=== PATIENT | female | born 1930 | race Caucasian/White ===

== ENCOUNTER 2016-12-02 13:11 | Emergency (ER) | payer MEDICARE, BC ==
[2016-12-02 13:53] VITALS: BP 132/79
--- NOTE | 2016-12-02 14:36 | UC ---
Throat Pain/Nasal Ramon HPI - HPI Summary HPI Summary: 86 YEAR OLD FEMALE PRESENTS WITH COMPLAINS OF LEFT LEG SWELLING, ERYTHEMA, AND PAIN. - History of Current Complaint Chief Complaint: UCRespiratory Stated Complaint: COUGH,SINUS PAIN Time Seen by Provider: 12/02/16 14:33 Onset/Duration: Lasting Days Severity: Moderate Pain Scale Used: 0-10 Numeric - 5 Cough: Nonproductive Associated Signs & Symptoms: Positive: Negative - Allergies/Home Medications Allergies/Adverse Reactions: Allergies Allergy/AdvReac Type Severity Reaction Status Date / Time Amoxicillin [From Augmentin] Allergy Severe Nausea And Verified 10/06/14 07:42 Vomiting Clavulanic Acid Allergy Severe Nausea And Verified 10/06/14 07:42 [From Augmentin] Vomiting Erythromycin Allergy Mild Nausea Verified 10/06/14 07:42 Home Medications: Home Medications Multiple Vitamins W/ Minerals [Multivitamin Women 50+] 1 tab PO 12/02/16 [ History] PMH/Surg Hx/FS Hx/Imm Hx Previously Healthy: Yes - Surgical History Surgical History: Yes Surgery Procedure, Year, and Place: hysterectomy. knee replacement. appy - Family History Known Family History: Positive: None - Social History Alcohol Use: None Substance Use Type: None Smoking Status (MU): Never Smoked Tobacco Review of Systems Constitutional: Negative Skin: Other - LEFT LEG CELLILITIS Eyes: Negative ENT: Negative Respiratory: Negative Cardiovascular: Negative Gastrointestinal: Negative Genitourinary: Negative Motor: Negative Neurovascular: Negative Musculoskeletal: Negative Neurological: Negative Psychological: Negative All Other Systems Reviewed And Are Negative: Yes Physical Exam Triage Information Reviewed: Yes Vital Signs: Initial Vital Signs Temp 37.1 C 12/02/16 13:40 Pulse 105 12/02/16 13:40 Resp 18 12/02/16 13:40 BP 132/79 12/02/16 13:40 Pulse Ox 99 12/02/16 13:40 Eye Exam: Normal ENT Exam: Normal Dental Exam: Normal Neck exam: Normal Neck: Positive: 1 Respiratory Exam: Normal Cardiovascular Exam: Normal Abdominal Exam: Normal Musculoskeletal Exam: Normal Neurological Exam: Normal Psychological Exam: Normal Skin: Positive: Other - LEFT LEG CELLULITIS Throat Pain/Nasal Course/Dx - Differential Dx/Diagnosis Provider Diagnoses: LEFT LEG CELLULITIS Discharge - Discharge Plan Condition: Stable Disposition: HOME Prescriptions: Azithromyxin BI (NF) [Z-Bi (Zithromax) 250 mg tabs #6] 2 tab PO .TODAY, THEN 1 DAILY #6 tab LoraTADine TAB(NF) [Claritin 10 MG TAB(NF)] 10 mg PO DAILY #30 tab guaiFENesin/CODIEN 100MG-10MG* [Robitussin AC 100Mg-10Mg*] 5 ml PO Q8H PRN #120 udc MDD 15 ml PRN Reason: Cough Patient Education Materials: Allergic Rhinitis (ED) Referrals: No Primary Care Phys,NOPCP [Primary Care Provider] -
== END 2016-12-02 14:43 | disposition home or self-care (01) ==
LOC: UCEAST 13:11
DX: L03.116 Cellulitis of left lower limb (principal); Z88.1 Allergy status to other antibiotic agents
CPT/HCPCS: 99212; G0463

== ENCOUNTER 2017-08-01 07:25 | Emergency (ER) | payer MEDICARE, BC ==
[2017-08-01 07:52] VITALS: BP 138/72
--- NOTE | 2017-08-01 08:39 | UC ---
Inga Vega Julia, scribed for Estefani Lake MD on 08/01/17 at 0827 . Respiratory Complaint HPI - HPI Summary HPI Summary: This patient is a 87 year old F presenting to [facility] [place] with a chief complaint of right sided sinus pain and pressure and chest congestion since 07/29/17. Patient reports rhinorrhea, post nasal drip, right ear pain, and mild sore throat. Pain is 1/10 pressure in severity. Patient denies CP, SOB, and dizziness. Sinus rinse , Claritin, AFrin, and Tylenol used to treat symptoms. Previous sinus infections relieved with Z-Mahad -last > 1 year. Pt reports hx of bronchitis when these symptoms are left untreated. PMHx of pulmonary embolism in R lung, three weeks ago, cause is unknown. Pt is currently taking Eliquis. Pt is being seen in [place] for follow up care. Allergies reviewed with patient. pt's medications reviewed - History of Current Complaint Chief Complaint: UCGeneralIllness Stated Complaint: SINUS ISSUE Hx Obtained From: Patient ?: No Onset/Duration: Lasting Days, Still Present Severity Initially: Mild Severity Currently: Mild Pain Intensity: 1 Pain Scale Used: 0-10 Numeric Character: Cough: Productive - yellow Aggravating Factors: Nothing Alleviating Factors: Nothing Associated Signs And Symptoms: Positive: Nasal Congestion, Sinus Discomfort. Negative: Pleuritic Chest Pain, Dizziness - Allergies/Home Medications Allergies/Adverse Reactions: Allergies Allergy/AdvReac Type Severity Reaction Status Date / Time amoxicillin [From Augmentin] Allergy Intermediate Nausea And Verified 08/01/17 07:42 Vomiting clavulanic acid Allergy Intermediate Nausea And Verified 08/01/17 07:42 [From Augmentin] Vomiting erythromycin base Allergy Mild Nausea Verified 08/01/17 07:42 Home Medications: Home Medications Acetaminophen [Tylenol] 2 tab PO BID PRN 08/01/17 [History Confirmed 08/01/17] Apixaban* [Eliquis*] 1 tab PO BID 08/01/17 [History Confirmed 08/01/17] LoraTADine TAB(NF) [Claritin 10 MG TAB(NF)] 10 mg PO DAILY PRN 08/01/17 [ History Confirmed 08/01/17] PMH/Surg Hx/FS Hx/Imm Hx Previously Healthy: No Respiratory History: Pulmonary Embolism - Surgical History Surgical History: Yes Surgery Procedure, Year, and Place: hysterectomy. knee replacement. appy - Family History Known Family History: Positive: Diabetes - Social History Occupation: Retired Lives: With Family - no smoke exposure at home Alcohol Use: None Substance Use Type: None Smoking Status (MU): Never Smoked Tobacco - Immunization History Most Recent Tetanus Shot: UNK Review of Systems Constitutional: Negative - dizziness ENT: Sore Throat, Ear Ache, Nasal Discharge, Sinus Congestion, Sinus Pain/ Tenderness Respiratory: Negative - SOB, Other - congestion Cardiovascular: Negative All Other Systems Reviewed And Are Negative: Yes Physical Exam Triage Information Reviewed: Yes Appearance: Well-Appearing, No Pain Distress, Well-Nourished Vital Signs: Initial Vital Signs Temp 99 F 08/01/17 07:44 Pulse 73 08/01/17 07:44 Resp 18 08/01/17 07:44 BP 138/72 08/01/17 07:44 Pulse Ox 99 08/01/17 07:44 Vital Signs Reviewed: Yes Eye Exam: Normal Eyes: Positive: Conjunctiva Clear ENT: Positive: Other - fluid right TM left TM wnl turbinates turbinates inflammed and boggy + PND uvula midline no exudate, no erythema + TTP sinus R> L maxillary Dental Exam: Normal Neck exam: Normal Neck: Positive: Supple, Nontender, No Lymphadenopathy Respiratory Exam: Normal Respiratory: Positive: Chest non-tender, Lungs clear, Normal breath sounds, No respiratory distress, No accessory muscle use Cardiovascular Exam: Normal Cardiovascular: Positive: RRR, No Murmur Abdominal Exam: Normal Abdomen Description: Positive: Nontender, No Organomegaly, Soft Bowel Sounds: Positive: Present Musculoskeletal Exam: Normal Musculoskeletal: Positive: Strength Intact Neurological Exam: Normal Neurological: Positive: Alert Psychological Exam: Normal Psychological: Positive: Normal Response To Family Skin Exam: Normal UC Diagnostic Evaluation - Laboratory O2 Sat by Pulse Oximetry: 99 Respiratory Course/Dx - Course Course Of Treatment: Pt presents with right sided facial pain and sinus pressure. Pt has taken claritin and Afrin with some improvement. pt with exam consistent with sunitis. Will start abx -pt tolerates zpack (emycin causes nausea). Afrin precaution. hydrate. secretion precaution. pcp f/u - Differential Dx/Diagnosis Provider Diagnoses: sinusitis Discharge - Sign-Out/Discharge Documenting (check all that apply): Discharge/Admit/Transfer - Discharge Plan Condition: Stable Disposition: HOME Prescriptions: Azithromycin TAB* [Zithromax TAB (Z-MAHAD) 250 mg #6 tabs] 2 tab PO .TODAY, THEN 1 DAILY #1 mahad Patient Education Materials: Sinusitis (ED) Referrals: No Primary Care Phys,NOPCP [Primary Care Provider] - Additional Instructions: - Stay well hydrated. Drink plenty of non-alcoholic, non-caffinated beverages. - Pkay to take Tylenol every 6 hours for pain or fever. Take with food. Do NOT take for more than 4-5 days. - These infections are spread by secretions - do NOT share eating or drinking utensils - clean items you share with other people such as cell phones, computer mouse, TV remote, computer tablets,etc. Once you have been antibiotics for 2 days, change your toothbrush and your pillowcase. - get plenty of restful sleep - humidify the air in the room where you sleep - boil water, run a hot steam shower, vaporizer, cups of water by heat register - okay to take over the counter decongestant and cough medication - do NOT Take Afrin for more than 3 days - contact your doctor or return with questions or concerns - Billing Disposition and Condition Condition: STABLE Disposition: HOME The documentation as recorded by the Inga valentine Julia accurately reflects the service I personally performed and the decisions made by me, Estefani Lake MD.
== END 2017-08-01 08:32 | disposition home or self-care (01) ==
LOC: UCEAST 07:25
DX: J32.9 Chronic sinusitis, unspecified (principal); Z86.711 Personal history of pulmonary embolism; Z79.01 Long term (current) use of anticoagulants; Z96.659 Presence of unspecified artificial knee joint; Z88.1 Allergy status to other antibiotic agents; Z88.0 Allergy status to penicillin
CPT/HCPCS: 99212; G0463

== ENCOUNTER 2019-04-04 09:31 | Emergency (ER) | payer MEDICARE, BC ==
[2019-04-04 09:45] VITALS: BP 150/90
--- NOTE | 2019-04-04 10:02 | UC ---
Respiratory Complaint HPI - HPI Summary HPI Summary: 88 yo female presents with sinus symptoms. She tells me that for the last 6 days she has had sinus pain/pressure/congestion. She is most concerned because about 7-8 months ago she had PNA and was admitted to the hospital - she does not want to develop this again. She has been taking sudafed OTC with no relief. Denies fever, chills, cough, SOB, rash, n/v - History of Current Complaint Chief Complaint: UCRespiratory Stated Complaint: HEADACHE, SORE THROAT Time Seen by Provider: 04/04/19 10:02 Hx Obtained From: Patient Onset/Duration: Gradual Onset Severity Initially: Mild Severity Currently: Mild Pain Intensity: 3 Pain Scale Used: 0-10 Numeric - Allergies/Home Medications Allergies/Adverse Reactions: Allergies Allergy/AdvReac Type Severity Reaction Status Date / Time amoxicillin [From Augmentin] Allergy Intermediate Nausea And Verified 04/04/19 09:45 Vomiting clavulanic acid Allergy Intermediate Nausea And Verified 04/04/19 09:45 [From Augmentin] Vomiting erythromycin base Allergy Mild Nausea Verified 04/04/19 09:45 Home Medications: Home Medications Metoprolol Tartrate 100 mg PO DAILY 04/04/19 [History Confirmed 04/04/19] PMH/Surg Hx/FS Hx/Imm Hx Cardiovascular History: Hypertension - Surgical History Surgical History: Yes Surgery Procedure, Year, and Place: hysterectomy. knee replacement. appy - Family History Known Family History: Positive: Diabetes - Social History Occupation: Retired Lives: With Family Alcohol Use: None Substance Use Type: None Smoking Status (MU): Never Smoked Tobacco - Immunization History Most Recent Tetanus Shot: UNK Review of Systems All Other Systems Reviewed And Are Negative: No Constitutional: Positive: Negative Skin: Positive: Negative Eyes: Positive: Negative ENT: Positive: Sore Throat, Nasal Discharge, Sinus Congestion, Sinus Pain/ Tenderness Respiratory: Positive: Negative Cardiovascular: Positive: Negative Gastrointestinal: Positive: Negative Neurological: Positive: Negative Psychological: Positive: Negative Physical Exam - Summary Physical Exam Summary: GENERAL: NAD. WDWN. No pain distress. SKIN: No rashes, sores, lesions, or open wounds. HEENT: Head: AT/NC Eyes: EOM intact. Conjunctiva clear without inflammation or discharge. Ears: Hearing grossly normal. TMs intact, no bulging, erythema, or edema. Nose: Nasal mucosa mildly swollen and erythematous without discharge. TTP maxillary and frontal sinus. Positive post nasal drip Throat: Posterior oropharynx without exudates, erythema, or tonsillar enlargement. Uvula midline. NECK: Supple. Nontender. No lymphadenopathy. CHEST: CTAB. No r/r/w. No accessory muscle use. Breathing comfortably and in no distress. NEURO: Alert. PSYCH: Age appropriate behavior. Triage Information Reviewed: Yes Vital Signs: Initial Vital Signs Temp 98.2 F 04/04/19 09:41 Pulse 76 04/04/19 09:41 Resp 18 04/04/19 09:41 BP 150/90 04/04/19 09:41 Pulse Ox 99 04/04/19 09:41 Laboratory Tests 04/04/19 10:02 Group A Strep Rapid Negative Vital Signs Reviewed: Yes Respiratory Course/Dx - Course Course Of Treatment: Discussed viral vs bacterial with pt and she prefers to be on anbx at this time. Has had zpak in the past without issues - Differential Dx/Diagnosis Provider Diagnosis: Sinusitis Discharge ED - Sign-Out/Discharge Documenting (check all that apply): Patient Departure All imaging exams completed and their final reports reviewed: No Studies - Discharge Plan Condition: Stable Disposition: HOME Prescriptions: Azithromycin TAB* [Zithromax TAB (Z-BI) 250 mg #6 tabs] 2 tab PO .TODAY, THEN 1 DAILY #1 bi guaiFENesin ER TAB [Mucinex*] 600 mg PO BID #14 tab.er Patient Education Materials: Sinusitis (ED) Referrals: Linda Granados [facility]ER [Primary Care Provider] - Additional Instructions: If you develop a fever, shortness of breath, chest pain, new or worsening symptoms - please call your PCP or go to the ED immediately. Your blood pressure was high at todays visit. Please see your primary provider within 4 weeks for recheck and re-evaluation. - Billing Disposition and Condition Condition: STABLE Disposition: Home
== END 2019-04-04 10:20 | disposition home or self-care (01) ==
LOC: UCEAST 09:31
DX: J32.9 Chronic sinusitis, unspecified (principal); I10 Essential (primary) hypertension; Z88.0 Allergy status to penicillin; Z88.1 Allergy status to other antibiotic agents; Z79.899 Other long term (current) drug therapy
CPT/HCPCS: 87651; 99212; G0463